=== PATIENT | female | born 1935 | race Hispanic/Latino ===

== ENCOUNTER 2018-06-23 07:09 | Day surgery (SDC) | payer MEDICARE ==
[2018-06-21 11:03] VITALS: BP 152/49
[2018-06-21 11:04] LABS: BASOPHILS % (AUTO) 1.5 % (0.0-5.0); EOSINOPHILS % (AUTO) 3.2 % (0.0-8.0); HEMATOCRIT 31.4 % (36-48); LYMPHOCYTES % (AUTO) 13.5 % (21.0-51.0); MEAN CORPUSCULAR HEMOGLOBIN 32.3 pg (27.0-33.0); MEAN CORPUSCULAR HGB CONC 32.8 g/dL (32.0-36.0); MEAN CORPUSCULAR VOLUME 98.6 fL (79-99); MONOCYTES % (AUTO) 13.6 % (3.0-13.0); NEUTROPHILS % (AUTO) 68.2 % (40.0-77.0); NUCLEATED RED BLOOD CELLS 0.1 % (0.0-0.19); PLATELET COUNT (AUTO) 135 K/uL (130-400); RED BLOOD CELL COUNT(AUTO) 3.19 MIL/uL (4.00-5.50); RED CELL DISTRIBUTION WIDTH 18.7 % (11.0-15.5); WHITE BLOOD COUNT (AUTO) 4.9 K/uL (4.8-10.8)
[2018-06-21 11:15] LABS: CREATININE 3.4 mg/dL (0.5-1.5); POTASSIUM 4.7 mmol/L (3.5-5.1)
[2018-06-21 11:31] LABS: INR 0.94 (0.85-1.15); PARTIAL THROMBOPLASTIN TIME 26.9 SEC (26.3-35.5); PROTHROMBIN TIME 9.9 SEC (9.6-11.6)
[~2018-06-23] VITALS: Ht 147.3 cm; Wt 50.0 kg
[2018-06-23] VITALS (11 sets, daily range): BP systolic 153–183; BP diastolic 46–70
[~2018-06-23 07:09] MED LIST: ASPI-1114 PO; ATOR40TA71 PO; CARV12.511 PO; DIGO125T87 PO; DOCU100T PO; ESOM20CA60 PO; FOLI1TAB15 PO; FURO40TA5 PO; RIVA15TA PO
[2018-06-23] MEDS ORDERED: NITROGLYCERIN 5 MG/ML 10 ML VIAL IV ONE (07:44)
[2018-06-23] MEDS ORDERED: BIVALIRUDIN 250 MG/VIAL IV ONE (07:44)
[2018-06-23] MEDS ORDERED: IOHEXOL-350 50ML VIAL IV ONE (07:44)
[2018-06-23] MEDS ORDERED: IOHEXOL 350 MG/ML 100ML INFUS..BTL IV ONE (07:45)
[2018-06-23] MEDS ORDERED: LIDOCAINE HCL 2% 20ML ONE (07:45)
--- NOTE | 2018-06-23 07:48 | NUR ---
assess left arm with av fistula in place. noted red, swelling ,and warm to touch, palpable bruit and thrill , left arm elevated on pillows for comfort
[2018-06-23] MEDS ORDERED: SODIUM CHLORIDE 0.9% 1000ML 1,000 ML IV SCH (08:00)
[2018-06-23] MEDS ORDERED: ASPI-1181 PO (08:03)
--- NOTE | 2018-06-23 08:04 | NUR ---
procedure pt taken to botany laboratory assistant for LHC via bed, no distress noted. daughter at bedside.
[2018-06-23] MEDS ORDERED: MIDAZOLAM HCL 1 MG/ML 2ML VIAL ONE (08:25)
[2018-06-23] MEDS ORDERED: LABETALOL 20 MG/4 ML DISP.SYRIN IV ONE ×2 (08:36→08:46)
[2018-06-23] MEDS ORDERED: GLUCAGON 1MG KIT 1 MG ML IM PRN (09:00)
[2018-06-23] MEDS ORDERED: METOPROLOL TARTRATE 1 MG/ML 5ML VIAL IV PRN (09:00)
[2018-06-23] MEDS ORDERED: DEXTROSE 50%-WATER 50 ML DISP.SYRIN IV PRN (09:00)
[2018-06-23] MEDS ORDERED: NITROGLYCERIN 0.4 MG SL TAB SL PRN (09:00)
--- NOTE | 2018-06-23 09:15 | NUR ---
POST RECEIVED PT BACK FROM CYTOPATHOLOGY TECHNOLOGIST, S/P LHC, RIGHT GROIN D STAT DRESSING DRY AND INTACT, SEE, POST CYTOPATHOLOGY TECHNOLOGIST ASSESSMENT. PT AWAKE AND ALERT, VS STABLE. FAMILY AT BEDSIDE. DR. ESTEVEZ SPOKE TO PTS FAMILY ABOUT RESULTS OF PROCEDURE
[2018-06-23] MEDS ORDERED: INSULIN HUMULIN R 100 UNIT/ML 3ML SQ SCH (11:30)
--- NOTE | 2018-06-23 12:48 | NUR ---
CONSULT SPOKE TO BARB RN WITH DR. Mayito PLASCENCIA ABOUT PATIENT BEING DISCHARGE AND HAS FOLLOW UP APPOINTMENT WITH DR PLASCENCIA ON JULY 11 2018 FOR TRIPLE VESSEL DISEASE AN OUTPATIENT. PT /FAMILY WILL SEE DR. RODRIGUEZ NEXT WEEK AND SPEAK ABOUT TO HIM ABOUT DECISION THEY WILL MAKE ABOUT POTENTIAL CABG. FAMILY STATED THEY ARE NOT SURE IF PATIENT WILL LIKE TO PROCEED WITH A HIGH RISK SURGERY, BUT WILL HAVE TO DECIDE ON A LATER TIME.
--- NOTE | 2018-06-23 14:30 | NUR ---
REPORT RECEIVED REPORT FROM TIFFANY CULLEN. PT SITTING UPRIGHT IN CHAIR. SITE TO RIGHT GROIN SOFT TO TOUCH. NO BLEEDING, OOZING NOTED TO SITE. RE-EDUCATED IMPORTANCE OF NOT LIFTING ANYTHING HEAVY AND MONITORING SITE . BOTH PT AND FAMILY VERBALIZED UNDERSTANDING.
[2018-06-23] MEDS ORDERED: ACETAMINOPHEN 325 MG TAB ONE (14:36)
[2018-06-23] MEDS ORDERED: ACETAMINOPHEN 325 MG TAB PO ONE (14:45)
--- NOTE | 2018-06-23 14:50 | NUR ---
DISCHARGE ORAL AND WRITTEN DISCHARGE INSTRUCTIONS GIVEN TO PT AND FAMILY. ALL VERBALIZED UNDERSTANDING. NO OTHER QUESTIONS AT THIS TIME.
== END 2018-06-23 15:10 | disposition home or self-care (01) ==
LOC: DAH 07:09
PROVIDERS: ATTEND Internal Medicine Cardiovascular Disease
DX: I25.118 Atherosclerotic heart disease of native coronary artery with other forms of angina pectoris (principal); I48.0 Paroxysmal atrial fibrillation; I13.2 Hypertensive heart and chronic kidney disease with heart failure and with stage 5 chronic kidney disease, or end stage renal disease; E11.22 Type 2 diabetes mellitus with diabetic chronic kidney disease; N18.6 End stage renal disease; I50.33 Acute on chronic diastolic (congestive) heart failure; Z99.2 Dependence on renal dialysis; Z98.890 Other specified postprocedural states; M19.90 Unspecified osteoarthritis, unspecified site; E78.5 Hyperlipidemia, unspecified; Z79.899 Other long term (current) drug therapy; Z79.01 Long term (current) use of anticoagulants; Z79.84 Long term (current) use of oral hypoglycemic drugs; E11.51 Type 2 diabetes mellitus with diabetic peripheral angiopathy without gangrene; I44.39 Other atrioventricular block; I35.0 Nonrheumatic aortic (valve) stenosis; Z85.038 Personal history of other malignant neoplasm of large intestine; M41.80 Other forms of scoliosis, site unspecified; I77.1 Stricture of artery
CPT/HCPCS: 36225; 36415; 71045; 80048; 82948 ×2; 85025; 85610; 85730; 93005; 93458; A4606; C1894 ×2; J1644; J2250; J3490 ×2; J7030; Q9965; Q9967; 99156; 99157; J0583